=== PATIENT | female | born 1965 ===

== ENCOUNTER 2020-11-15 05:44 | Day surgery (SDC) | payer BC ==
[2020-11-15] MEDS ORDERED: Midazolam 1 MG/ML 2 ML SDV IV ONE ×3 (05:45→07:19)
[2020-11-15] MEDS ORDERED: fentaNYL 100 MCG/2 ML SDV IV ONE ×3 (05:45→07:18)
[2020-11-15] MEDS ORDERED: fentaNYL 100 MCG/2 ML SDV ONE (06:15)
[2020-11-15] MEDS ORDERED: Midazolam 1 MG/ML 2 ML SDV ONE (06:15)
[2020-11-15] MEDS ORDERED: Dextrose 5%-0.45% NaCl 1,000 ML IV SCH (06:45)
--- NOTE | 2020-11-15 09:46 | OR ---
DATE: 11/15/2020 PROCEDURES: Esophagogastroduodenoscopy and multiple pinch biopsies. INSTRUMENT USED: [id number]-HQ190 Olympus video panendoscope. PREMEDICATIONS: No oral or topical anesthesia used. Fentanyl 100 mcg intravenous, Versed 2 mg intravenous. The procedure was done under pulse oximetry, BP recording, and monitoring analyst. INDICATION: The patient with persistent heartburn and related chest pain, unexplained and not responsive to medical measures, on acid suppressants. Esophagogastroduodenoscopy is performed for detection of any active erosive lesions, Campos esophagus and/or malignancy also under consideration, H pylori status to be determined, endoscopic hemostasis therapy if needed. The scope was passed with ease. Adequate visualization of the esophagus was made from proximal to distal areas. No upper esophageal lesions identified. No distal esophageal stricture. No uphill or downhill esophageal varices. No Elsie- Adhikari tear. No evidence of erosive esophagitis by Bosque criteria. No esophageal polyp or tumor mass identified. Z-line was seen at around 40 cm distal to the oral verge. Gastric fundus examination by retroflexion showed multiple benign-appearing diminutive polyps. No gastric ulcer, malignant mass, or vascular ectasia identified. No proximal gastric varices noted. Duodenal bulb showed no ulcer. Visualized second part of the duodenum was unremarkable. Multiple pinch biopsies were obtained from the gastric antrum and proximal body and sent for PyloriTek test for H pylori and histopathology. Four-quadrant biopsies were taken from the distal and proximal esophagus and sent for any evidence of eosinophilic esophagitis. No bleeding was noted from any of the visualized areas at the completion of examination. Photographs were taken of the duodenal bulb, gastric antrum, fundus, and distal esophagus. IMPRESSION: Diminutive gastric fundus polyps. The patient tolerated the procedure well. [facility] /[id number]
== END 2020-11-15 09:45 | disposition home or self-care (01) ==
LOC: DL.ENDO 05:44
PROVIDERS: ATTEND Internal Medicine Gastroenterology
DX: K31.7 Polyp of stomach and duodenum (principal); F41.9 Anxiety disorder, unspecified; K21.9 Gastro-esophageal reflux disease without esophagitis; Z98.890 Other specified postprocedural states
CPT/HCPCS: 87077; J2250; J3010; J7042